=== PATIENT | female | born 1995 | race Caucasian/White ===

== ENCOUNTER 2018-11-26 12:43 | Inpatient (IN) ==
[2018-11-26] MEDS ORDERED: LACTATED RINGER'S 1,000 ML IV PRN (13:35)
[2018-11-26] MEDS ORDERED: LACTATED RINGER'S 250 ML IV ONE (13:35)
[2018-11-26] MEDS: LACTATED RINGER'S 1,000 ML IV SCH ×3 (13:49→23:41)
[2018-11-26 14:08] LABS: Basophils # (auto) 0.01 K/uL (0-0.2); Basophils % (auto) 0.1 %; Eosinophils # (auto) 0.02 K/uL (0-0.5); Eosinophils % (auto) 0.2 %; Hematocrit (blood only) 33.1 % (37-47); Hemoglobin 11.3 g/dL (12.0-16.0); Immature Granulocytes % (auto) 0.9 %; Lymphocytes # (auto) 0.79 K/uL (1.2-3.4); Lymphocytes % (auto) 6.7 %; Mean Corpuscular Volume 89.5 fL (80-100); Mean Platelet Volume 9.6 fL (7.4-10.4); Monocytes # (auto) 0.83 K/uL (0.11-0.59); Monocytes % (auto) 7.1 %; Neutrophils # (auto) 9.97 K/uL (1.4-6.5); Platelet Count 290 K/uL (130-400); RDW Standard Deviation 42.1 fL (36.4-46.3); White Blood Count 11.72 K/uL (4.8-10.8)
[2018-11-26 14:12] LABS: Mean Corpuscular Hgb Conc 34.1 g/dL (32-36)
[2018-11-26 14:25] LABS: Appearance Urine Clear (Clear); Bacteria Urine Automated Negative (Negative); Bilirubin Urine Negative (Negative); Blood Urine 1+ (Negative); Color Urine Yellow; Glucose Urine UA Negative (Negative); Ketones Urine Negative (Negative); Leukocyte Esterase Urine 1+ (Negative); Nitrite Urine Negative (Negative); Protein Urine 2+ (Negative); Specific Gravity Urine 1.014 (1.000-1.030); Urobilinogen Urine Negative (Negative); WBC Urine Automated >30 /hpf (0-5)
--- NOTE | 2018-11-26 14:28 | Progress Note ---
Date of Service November 26, 2018 Subjective Pt is 34 week with RLQ pain, No hematuria, dysuria but +ve frequency and urgency Afebrile on admission but reports chills last seen for UTI PMH. PSH, Fam hx. Allergies,social and OB hx reviewed FHR; tach Ctx. 2-4mins plan +ve RCVAT Plan IVF labs start Antibx continuos monitoring Results & Data Vital Signs (Past 12 Hours) Vital Signs Temp Pulse Resp BP Pulse Ox 11/26/18 14:14 37.8 C H 20 11/26/18 13:29 104 H 138/89 11/26/18 13:28 107 H 97 11/26/18 13:23 106 H 96 11/26/18 13:18 105 H 96 11/26/18 13:13 97 H 97 11/26/18 13:08 110 H 98 11/26/18 13:03 100 H 97 11/26/18 12:58 102 H 98 11/26/18 12:57 37.3 C 20 11/26/18 12:53 99 H 133/83 99 11/26/18 12:48 101 H 96
[2018-11-26 14:30] LABS: Albumin Level 2.6 gm/dl (3.4-5.0); BUN Creatinine Ratio 11.3 (10-20); Calcium 9.4 mg/dl (8.5-10.1); Creatinine Clr Calc Pharmacy 171.4 ml/min; Est GFR (African American) 147.1; Est GFR (Non-African American) 126.9; Potassium 3.7 mmol/L (3.5-5.1)
[2018-11-26 14:33] LABS: Albumin Globulin Ratio 0.6 (0.9-2); Bilirubin,Total 0.3 mg/dl (0.2-1); Globulin 4.4 gm/dl (2.5-4.0)
[2018-11-26] MEDS: cefTRIAXone SODIUM 2,000 MG in DEXTROSE 5% 50 ML IV SCH (14:55)
--- NOTE | 2018-11-26 16:24 | Ultrasound Report ---
US renal/blad retro comp HISTORY: Pain suspected pyelonephritis in at 24 weeks COMPARISON: None. FINDINGS: Right kidney: Moderate right renal hydronephrosis. Maximum linear dimension right kidney 12.2 cm. Nor mal corticomedullary differentiation and cortical thickness. Left kidney: Maximum dimension 13.6 cm. Moderate hydronephrosis. Normal corticomedullary differentia tion and cortical thickness. Bladder: No bladder wall thickening. The bilateral ureteral jets were identified. IMPRESSION: 1. Moderate bilateral hydronephrosis. 2. Otherwise negative study. The above report was generated using voice recognition software. It may contain grammatical, syntax or spelling errors. Electronically signed by: Ramin Loving M.D. 11/26/2018 4:23 PM
[2018-11-26] MEDS: ACETAMINOPHEN 500 MG TAB PO PRN ×2 (16:59→23:40)
--- NOTE | 2018-11-26 22:53 | History and Physical Report ---
DATE OF ADMISSION: 11/26/2018 HISTORY OF PRESENT ILLNESS: The patient is a 23-year-old G2, P0, due date 12/27/2018 making her 35 weeks and 4 days today, who presented to labor and delivery with right-sided lower abdominal pain. She has no shortness of breath. The patient complained of chills, no fever. No rupture of membranes or bloody show. Temperature was 36.9. The patient denied any hematuria or dysuria. She, however, does complain of frequency and urgency. The patient was seen last month for urinary tract infection and was treated. She reports the pain to be in the lower flank and radiating from back to the front. COURSE: Has been unremarkable except for history of UTI. PAST MEDICAL HISTORY: No history of diabetes, hypertension, or asthma. No history of renal stones. The patient, however, does have a history of headaches. PAST SURGICAL HISTORY: The patient had surgery for an impacted tooth and D and C. ALLERGIES: No known drug allergies. SOCIAL HISTORY: Denies tobacco, drug, or alcohol use. FAMILY HISTORY: Noncontributory. PHYSICAL EXAMINATION: VITAL SIGNS: Blood pressure 119/65, pulse 93, respirations 20, temperature is 36.9. On the monitor, fetus, however, was tachycardic in the 160-180s. HEART: S1, S2, regular rhythm and rate. LUNGS: Clear to auscultation bilaterally. ABDOMEN: Nontender, nondistended, positive bowel sounds. heart rate is in the 160s to 180s. There is right CVA tenderness. PELVIC EXAM: Closed, thick, and posterior. EXTREMITIES: No cyanosis, clubbing, edema. ASSESSMENT AND PLAN: At this point, was suspected pyelonephritis. The patient had an ultrasound which showed dilated hydronephrosis, no stones were evident. The patient does, however, report several episodes of chills. There is, however, no fever recorded at this time since patient has been on the floor. Suspected pyelonephritis. The patient is started on IV fluids and Rocephin. heart rate has since resolved to the 130s to 150s and is reactive. Plan is to keep patient overnight, continue ____ with antibiotics. Continue to monitor her temperatures.
--- NOTE | 2018-11-27 06:48 | Progress Note ---
Date of Service November 27, 2018 Subjective S: Pt feeling much better this AM. Afebrile since admission Improved CVAT Tolerating po food and meds On Rocephin antibx O; VSS stable UCX. +vbe for E.Coli PE: Lung; CTA bilat Ht; S1S1 R/r/r ABD; NT. Gravid. NST reactive, No Ctx - Reported by Nurses Ext; No C/C/E a/P Pyelonephritis vrs UTI Pt responding to Antibx Afebrile x 24 hrs will d/c after 2nd dose of antibx today and send home on Po Macrobid Results & Data Vital Signs (Past 12 Hours) Vital Signs Temp Pulse Resp BP Pulse Ox 11/27/18 03:25 37.1 C 86 16 109/64 98 11/26/18 23:45 37 C 96 H 16 121/76 97 11/26/18 19:45 36.6 C 86 18 113/64 96 11/26/18 19:05 93 H 119/65 11/26/18 19:00 20 11/26/18 18:56 36.9 C
[2018-11-27] MEDS: LACTATED RINGER'S 1,000 ML IV SCH (07:26)
[2018-11-27] MEDS: ACETAMINOPHEN 500 MG TAB PO PRN (10:20)
[2018-11-27] MEDS: cefTRIAXone SODIUM 2,000 MG in DEXTROSE 5% 50 ML IV SCH (14:26)
--- NOTE | 2018-12-13 05:12 | Discharge Summary ---
CHIEF COMPLAINT: Right flank pain. HISTORY OF PRESENT ILLNESS: This is a 23-year-old G2, P0, patient, due date 12/27/2018 making her 35 weeks and 4 days on 11/26/2018. Patient presented to labor and delivery with right-sided lower abdominal pain. She denied any shortness of breath. She denied any fever or chills. No bloody show or rupture of membranes. Temperature on arrival at labor and delivery was 36.9. The patient had no hematuria or dysuria. She, however, complained of frequency and urgency. She has been experiencing right-sided lower abdominal pain for a couple of days. She had had a history of urinary tract infection a few weeks ago and had been treated with Macrobid. Upon evaluation including ultrasound and labs, the patient was diagnosed with pyelonephritis. She received Rocephin antibiotics, her pain improved. She was discharged home the next day in stable condition. PAST MEDICAL HISTORY: History of UTI. No history of diabetes, hypertension, or asthma. has been uncomplicated. PAST SURGICAL HISTORY: The patient had dental surgery in the past. ALLERGIES: No known drug allergies. SOCIAL HISTORY: The patient denies tobacco, drug or alcohol use. FAMILY HISTORY: Noncontributory. REVIEW OF SYSTEMS: Negative except as dictated in the HPI. PHYSICAL EXAMINATION: VITAL SIGNS: On 11/27/2018, blood pressure was 115/68, pulse was 90, respiration was 18. HEART: S1, S2, regular rhythm and rate. LUNGS: Clear to auscultation bilaterally. ABDOMEN: Nontender and nondistended. Improved CVA tenderness at time of discharge. heart rate was documented and was category 1. EXTREMITIES: No cyanosis, clubbing, or edema. LABORATORY DATA: On 11/26/2018, hemoglobin was 11.3, hematocrit was 33.1, platelets were 290. CONDITION ON DISCHARGE: Stable. Antibiotics treatment for pyelonephritis. DISCHARGE DISPOSITION: The patient is discharged home in stable condition. PLAN ON DISCHARGE: The patient is discharged home with instructions regarding activity, diet, and followup appointment.
== END 2018-11-27 15:45 | disposition home or self-care (01) | DRG 832 ==
LOC: 4S1 12:43 → OPB 12:43 → 4S1 18:22 → 4N 19:35

== ENCOUNTER 2018-12-29 06:56 | Inpatient (IN) ==
[2018-12-29] MEDS ORDERED: OXYTOCIN 30 UNITS/500 ML BAG IV PRN ×2 (10:14→20:49)
[2018-12-29] MEDS ORDERED: BUTORPHANOL TARTRATE 2 MG/ML VIAL IV PRN (10:17)
[2018-12-29 10:32] LABS: Hematocrit (blood only) 34.9 % (37-47); Hemoglobin 12.2 g/dL (12.0-16.0); Mean Corpuscular Volume 89.9 fL (80-100); Mean Platelet Volume 9.8 fL (7.4-10.4); Platelet Count 330 K/uL (130-400); RDW Coefficient of Variation 13.6 % (11.5-14.5); RDW Standard Deviation 44.7 fL (36.4-46.3); Red Blood Count 3.88 M/uL (4.2-5.4); White Blood Count 14.04 K/uL (4.8-10.8)
[2018-12-29] MEDS ORDERED: ACETAMINOPHEN 325 MG TAB PO STA (11:16)
[2018-12-29] MEDS: LACTATED RINGER'S 1,000 ML IV PRN ×2 (13:35→16:43)
[2018-12-29] MEDS ORDERED: fentaNYL citrate 100 MCG/2 ML VIAL ONE (16:09)
[2018-12-29] MEDS ORDERED: BUPIVACAINE 0.25% 30 ML VIAL ONE (16:09)
[2018-12-29] MEDS ORDERED: ePHEDrine sulfate 50 MG/ML AMP ONE (16:09)
[2018-12-29] MEDS ORDERED: fentaNYL 2MCG/ML ROPIV 1.25MG/ML 100 ML BAG EPI ONE (16:10)
[2018-12-29] MEDS ORDERED: ePHEDrine sulfate 50 MG/ML AMP IV PRN (16:16)
[2018-12-29] MEDS ORDERED: DiphenhydrAMINE HCL 50 MG/ML VIAL IV PRN (16:16)
[2018-12-29] MEDS ORDERED: NALOXONE HCL 0.4 MG/1 ML VIAL/CARP IV PRN (16:16)
[2018-12-29] MEDS ORDERED: fentaNYL 2MCG/ML ROPIV 1.25MG/ML 100 ML BAG EPI PRN (16:16)
[2018-12-29] MEDS ORDERED: ONDANSETRON INJ 2 MG/ML 2 ML VIAL IV PRN (16:16)
[2018-12-29] MEDS ORDERED: NALOXONE HCL 1 MG in SODIUM CHLORIDE 0.9% 1000ML 1,000 ML IV PRN (16:16)
[2018-12-29] MEDS ORDERED: NALBUPHINE HCL INJ 10 MG/ML AMP IV PRN (16:16)
--- NOTE | 2018-12-29 16:19 | Anesthesiology Consultation ---
Date of Service December 29, 2018 Assessment & Plan (1) Encounter for pre-operative examination: Chart Review Chart Review: Acceptable Risk for Labor Epidural Consults Requested none ASA ASA2 Proposed Anesthesia Anesthesia Type: Labor Epidural Risk / Benefits Reviewed With: PT / POA / Parent / Guardian, Accepts Plan and Informed Consent Obtained History Height/Weight Height: 5 ft 6 in Weight: 102.058 kg Allergies Allergy/AdvReac Type Severity Reaction Status Date / Time No Known Allergies Allergy Verified 12/29/18 07:35 Medications Home Medications Medication Instructions Recorded Confirmed Last Taken Vitamin 1 tab PO DAILY 11/26/18 12/29/18 12/28/18 17:00 Active Medications Generic Name Dose Route Start Last Admin Trade Name Freq PRN Reason Stop Dose Admin Butorphanol Tartrate 2 mg 12/29/18 10:17 12/29/18 13:41 Stadol IV 01/28/19 10:16 2 mg Q3H PRN Administration Pain Lactated Ringer's 1,000 mls @ 125 mls/hr 12/29/18 10:14 12/29/18 15:25 Lr IV 12/31/18 10:13 125 mls/hr .Q8H PRN Infusion L&D Protocol Protocol Past Medical History Medical History Gestational diabetes SAB (spontaneous ) Edgar teeth extracted 09/2016 Exercise / Class Metabolic Activity II 4-5 Yardwork/Stairs/Walk up hill Past Family History Family History Other No pertinent family history Past Surgical History Surgical History H/O dilation and curettage Past Anesthesia History No Hx of Anesthesia Complications and No Family Hx of Anesthesia Complications History of PONV No Hx of PONV and No Hx of Motion Sickness Social History Smoking Status: Former smoker Hx Alcohol Use: No Hx Substance Use: No Physical Exam Vital Signs Last Vital Signs Temp 97.5 F L 12/29/18 15:10 Pulse 67 12/29/18 15:10 Resp 20 12/29/18 15:10 BP 134/82 12/29/18 15:10 ENMT Mouth: no dentition abnormality Thyromental Distance: > or= 3.5 Finger Breadths Mallampati Class: II Neck normal visual inspection Respiratory normal respiratory effort Auscultation: lungs clear to auscultation bilaterally Cardiovascular Rate/Rhythm: regular rate and regular rhythm Testing Laboratory Results 12/29/18 10:19
--- NOTE | 2018-12-29 17:40 | Labor Progress Brief Note ---
Date of Service December 29, 2018 Pt doing well FHR ;CAT1 ctx irreg VE: 10/100/0 station AROM; light [facility] Results & Data Vital Signs (Past 12 Hours) Vital Signs Temp Pulse Resp BP Pulse Ox 12/29/18 17:37 86 98 12/29/18 17:32 79 97 12/29/18 17:30 85 145/97 H 12/29/18 17:27 84 99 12/29/18 17:22 88 92 12/29/18 17:17 83 98 12/29/18 17:16 90 144/86 H 12/29/18 17:15 86 91 12/29/18 17:12 90 98 12/29/18 17:07 89 99 12/29/18 17:02 82 100 12/29/18 16:59 85 136/80 12/29/18 16:57 93 H 99 12/29/18 16:54 83 134/78 12/29/18 16:52 89 99 12/29/18 16:47 88 98 12/29/18 16:45 94 H 121/70 12/29/18 16:42 93 H 129/73 98 12/29/18 16:39 89 135/76 12/29/18 16:37 83 97 12/29/18 16:36 85 136/80 12/29/18 16:35 102 H 94 12/29/18 16:32 91 H 97 12/29/18 16:27 78 97 12/29/18 16:22 81 98 12/29/18 16:17 79 132/74 98 12/29/18 15:10 36.4 C L 67 20 134/82 12/29/18 13:31 78 118/69 12/29/18 10:03 36.6 C 77 20 134/71 12/29/18 07:13 36.5 C 20 12/29/18 07:11 78 140/85
[2018-12-29] MEDS ORDERED: METHYLERGONOVINE MALEATE 0.2 MG/ML AMP ONE (20:41)
[2018-12-29] MEDS ORDERED: miSOPROStol 200 MCG TAB ONE (20:42)
[2018-12-29] MEDS ORDERED: BISACODYL 10 MG SUPP PR PRN (20:49)
[2018-12-29] MEDS ORDERED: miSOPROStol 200 MCG TAB PR ONE (20:49)
[2018-12-29] MEDS ORDERED: HYDROCORTISONE ACETATE 25 MG SUPP PR PRN (20:49)
[2018-12-29] MEDS ORDERED: METHYLERGONOVINE MALEATE 0.2 MG/ML AMP IM ONE (20:49)
[2018-12-29] MEDS ORDERED: DIPHTHERIA/TETANUS/PERTUSSIS 0.5 ML SYR/VIAL IM ONE (20:49)
[2018-12-29] MEDS ORDERED: SUPERCREAM 0.870% 15 GM JAR EXT PRN (20:49)
--- NOTE | 2018-12-29 22:47 | Anesthesia Procedure Note ---
Date of Service December 29, 2018 Anesthesia Post Epidural Note Vital Signs Vital Signs: Temp Pulse Resp BP Pulse Ox 36.5 C 89 20 136/62 87 L 12/29/18 19:15 12/29/18 22:33 12/29/18 21:30 12/29/18 22:33 12/29/18 20:32 Pain Intensity Bilateral Abdomen: Pain Intensity: 0 Notes Mental Status: alert / awake / arousable and participated in evaluation Nausea / Vomiting: adequately controlled Pain: adequately controlled Airway Patency, RR, SpO2: stable & adequate BP & HR: stable & adequate Hydration State: stable & adequate Neuraxial Anesthesia: was administered and sensory block is resolving Anesthetic Complications: no major complications apparent and Pt Satisfied with anesthetic care Epidural: Removed without complications and With tip intact
[2018-12-29] MEDS: DOCUSATE SODIUM 100 MG CAP PO SCH (22:56)
--- NOTE | 2018-12-29 23:23 | History and Physical Report ---
DATE OF ADMISSION: 12/29/2018 HISTORY OF PRESENT ILLNESS: The patient is a 23-year-old G2, P0, due date was 12/27/2018 making her 40 weeks and 2 days. Patient presented to labor and delivery with contraction every 3-4 minutes. heart rate on arrival was category 1. She was examined and found to be about 3 cm. The patient ambulated for a couple of hours, she changed to 4 cm, and was admitted in anticipation of labor. course has been unremarkable except for history of gestational diabetes that was being controlled by diet. PAST MEDICAL HISTORY: History of headaches. PAST SURGICAL HISTORY: History of dental surgery. SOCIAL HISTORY: The patient was a former smoker. Denied any smoking in this . Denied alcohol and drug use. FAMILY HISTORY: Noncontributory. ALLERGIES: No known drug allergies. PHYSICAL EXAMINATION: GENERAL: Well-developed, well-nourished white female in no acute distress except for labor discomfort. HEART: S1, S2, regular rhythm and rate. LUNGS: Clear to auscultation bilaterally. ABDOMEN: Nontender, gravid. PELVIC: On admission was 3 cm. EXTREMITIES: No cyanosis, clubbing or edema. ASSESSMENT AND PLAN: A 23-year-old G2, P0 at 40 weeks and 2 days who presented to labor and delivery in labor. The patient has been admitted. We anticipate vaginal delivery.
[2018-12-29] MEDS: BENZOCAINE 20% AER SPR 82.5 GM CAN EXT PRN (23:30)
[2018-12-30] MEDS: ACETAMINOPHEN 325 MG TAB PO PRN (03:22)
[2018-12-30] MEDS: IBUPROFEN 600 MG TAB PO PRN ×3 (04:06→14:56)
[2018-12-30 05:29] LABS: Appearance Urine Cloudy (Clear); Bilirubin Urine Negative (Negative); Blood Urine 3+ (Negative); Color Urine Red; Glucose Urine UA Negative (Negative); Ketones Urine Negative (Negative); Leukocyte Esterase Urine 1+ (Negative); Nitrite Urine Negative (Negative); Protein Urine 2+ (Negative); Urobilinogen Urine Negative (Negative); pH Urine 6.5 (4.5-7.5)
[2018-12-30 05:57] LABS: Mucus Urine Present (None Prsent); RBC Urine >30 /hpf (0-4); WBC Urine >30 /hpf (0-5)
[2018-12-30 05:58] LABS: Bacteria Urine 1+ (Negative)
[2018-12-30 06:46] LABS: Hematocrit (blood only) 33.6 % (37-47); Hemoglobin 11.2 g/dL (12.0-16.0); Mean Corpuscular Hgb Conc 33.3 g/dL (32-36); Mean Corpuscular Volume 90.3 fL (80-100); Mean Platelet Volume 9.9 fL (7.4-10.4); Platelet Count 277 K/uL (130-400); RDW Coefficient of Variation 13.8 % (11.5-14.5); RDW Standard Deviation 45.6 fL (36.4-46.3); Red Blood Count 3.72 M/uL (4.2-5.4); White Blood Count 18.49 K/uL (4.8-10.8)
--- NOTE | 2018-12-30 06:46 | Delivery Summary ---
DATE OF OPERATION: 12/29/2018 The patient delivered a live infant male in right occiput anterior presentation. There was no nuchal cord. was delivered. Cord was clamped and cut after 1 minute. Cord blood was obtained. Placenta was spontaneously delivered. Inspection of the placenta showed meconium's presence. There was terminal meconium post-delivery as well. Inspection of the perineum showed right labial tear which was repaired with 2-0 Vicryls. There were no other lacerations in the vagina. Rectal exam post repair showed good sphincter tone. Estimated blood loss was 500 mL. Baby and mother are doing well in recovery. Patient's Apgars in the pediatric record. I attest to the content of the Intraoperative Record and any orders documented therein. Any exception s are noted below.
[2018-12-30] MEDS: PRENATAL VITAMIN 1 TAB PO SCH (07:31)
[2018-12-30] MEDS: DOCUSATE SODIUM 100 MG CAP PO SCH ×2 (07:31→20:35)
[2018-12-30] MEDS: FERROUS SULFATE 325 MG TAB PO SCH (07:31)
--- NOTE | 2018-12-30 09:12 | Obstetrical Progress Note ---
Date of Service December 30, 2018 Subjective doing well no pain or significant bleeding Physical Exam Constitutional: WD/WN, vitals as above comfortable abdomen soft non- tender fundus firm no edema neg Sanai's repeat CBC in AM tent d/c in AM Results & Data Vital Signs (Past 12 Hours) Vital Signs Temp Pulse Pulse Resp BP BP Pulse Ox 12/30/18 05:10 37.2 C 12/30/18 03:55 38.8 C H 12/30/18 03:20 38.0 C H 118 H 18 124/73 96 12/29/18 23:10 36.9 C 101 H 18 128/78 97 12/29/18 22:33 89 136/62 12/29/18 22:15 93 H 154/79 H 12/29/18 22:03 90 150/79 H 12/29/18 21:45 93 H 137/60 12/29/18 21:30 93 H 20 145/64 H 12/29/18 21:27 97 H 130/61 Laboratory Results Vital Signs Temp Pulse Pulse Resp BP BP Pulse Ox 12/30/18 05:10 37.2 C 12/30/18 03:55 38.8 C H 12/30/18 03:20 38.0 C H 118 H 18 124/73 96 12/29/18 23:10 36.9 C 101 H 18 128/78 97 12/29/18 22:33 89 136/62 12/29/18 22:15 93 H 154/79 H 12/29/18 22:03 90 150/79 H 12/29/18 21:45 93 H 137/60 12/29/18 21:30 93 H 20 145/64 H 12/29/18 21:27 97 H 130/61 12/29/18 20:45 103 H 20 141/81 H 12/29/18 20:40 98 H 137/65 12/29/18 20:32 150 H 87 L 12/29/18 20:28 110 H 94 12/29/18 20:27 107 H 94 12/29/18 20:22 129 H 93 12/29/18 20:17 149 H 97 12/29/18 20:12 136 H 95 12/29/18 20:08 91 H 93 12/29/18 20:07 90 96 12/29/18 20:03 100 H 94 12/29/18 20:02 108 H 97 12/29/18 19:57 92 H 94 12/29/18 19:52 90 94 12/29/18 19:50 94 H 94 12/29/18 19:47 98 H 96 12/29/18 19:46 93 H 116/76 12/29/18 19:44 95 H 94 12/29/18 19:42 103 H 95 12/29/18 19:39 93 H 94 12/29/18 19:37 83 94 12/29/18 19:34 84 94 12/29/18 19:32 97 H 95 12/29/18 19:30 74 132/78 12/29/18 19:29 91 H 94 12/29/18 19:27 85 94 12/29/18 19:24 80 93 12/29/18 19:22 88 92 12/29/18 19:18 100 H 93 12/29/18 19:17 95 H 95 12/29/18 19:15 36.5 C 85 20 128/81 12/29/18 19:13 75 93 12/29/18 19:12 88 95 12/29/18 19:07 74 96 12/29/18 19:05 78 93 12/29/18 19:02 76 95 12/29/18 19:00 76 20 124/63 12/29/18 18:57 76 93 12/29/18 18:52 77 97 12/29/18 18:49 82 92 12/29/18 18:47 69 96 12/29/18 18:46 71 116/87 12/29/18 18:44 71 90 12/29/18 18:42 67 97 12/29/18 18:39 71 93 12/29/18 18:37 69 98 12/29/18 18:32 80 95 12/29/18 18:30 67 129/66 12/29/18 18:29 93 H 93 12/29/18 18:27 80 96 12/29/18 18:22 74 96 12/29/18 18:17 73 97 12/29/18 18:15 69 121/55 L 12/29/18 18:13 75 94 12/29/18 18:12 69 94 12/29/18 18:07 78 97 12/29/18 18:02 78 97 12/29/18 18:00 73 20 122/67 06/30/19 17:57 77 96 12/29/18 17:52 76 98 12/29/18 17:47 77 98 12/29/18 17:46 67 119/64 12/29/18 17:42 78 99 12/29/18 17:40 75 93 12/29/18 17:37 86 98 12/29/18 17:32 79 97 12/29/18 17:30 85 145/97 H 12/29/18 17:27 84 99 12/29/18 17:22 88 92 12/29/18 17:17 83 98 12/29/18 17:16 90 144/86 H 12/29/18 17:15 86 91 12/29/18 17:12 90 98 12/29/18 17:07 89 99 12/29/18 17:02 82 100 12/29/18 16:59 85 136/80 12/29/18 16:57 93 H 99 12/29/18 16:54 83 20 134/78 12/29/18 16:52 89 99 12/29/18 16:47 88 98 12/29/18 16:45 94 H 121/70 12/29/18 16:42 93 H 129/73 98 12/29/18 16:39 89 135/76 12/29/18 16:37 83 97 12/29/18 16:36 85 136/80 12/29/18 16:35 102 H 94 12/29/18 16:32 91 H 97 12/29/18 16:27 78 97 12/29/18 16:22 81 98 12/29/18 16:17 79 132/74 98 12/29/18 15:10 36.4 C L 67 20 134/82 12/29/18 13:31 78 118/69 12/29/18 10:03 36.6 C 77 20 134/71 Intake and Output 12/29/18 12/30/18 12/30/18 22:59 06:59 14:59 Intake Total 1355.700 / 1355.700 Output Total 1400 / 1400 Balance -44.300 / -44.300 Intake: IV 1355.700 / 1355.700 Lr 1,000 ml @ 125 mls/hr IV . 1355.700 / 1355.700 Q8H PRN Rx#:[id number] Output: Urine 1400 / 1400 Other: Weight 102.058 kg Diagnostic Findings Laboratory Results - last 24 hr 12/29/18 12/30/18 12/30/18 10:19 04:00 06:26 WBC 14.04 H 18.49 H RBC 3.88 L 3.72 L Hgb 12.2 11.2 L Hct 34.9 L 33.6 L MCV 89.9 90.3 MCH 31.4 30.1 MCHC 35.0 33.3 RDW Std Deviation 44.7 45.6 RDW Coeff of Ren 13.6 13.8 Plt Count 330 277 MPV 9.8 9.9 Urine Color Red Urine Appearance Cloudy A Urine pH 6.[address] 1.020 Urine Protein 2+ H Urine Glucose (UA) Negative Urine Ketones Negative Urine Blood 3+ H Urine Nitrite Negative Urine Bilirubin Negative Urine Urobilinogen Negative Ur Leukocyte Esterase 1+ H Urine RBC >30 H Urine WBC >30 H Ur Epithelial Cells 10-20 H Urine Bacteria 1+ H Urine Mucus Present A
[2018-12-30] MEDS ORDERED: BISACODYL 5 MG TABEC PO SCH (20:00)
[2018-12-31] MEDS: IBUPROFEN 600 MG TAB PO PRN ×2 (00:04→18:30)
[2018-12-31] MEDS: ACETAMINOPHEN 325 MG TAB PO PRN ×2 (02:09→11:16)
[2018-12-31 06:49] LABS: Hematocrit (blood only) 34.2 % (37-47); Hemoglobin 11.5 g/dL (12.0-16.0); Mean Corpuscular Hgb Conc 33.6 g/dL (32-36); Mean Corpuscular Volume 90.5 fL (80-100); Mean Platelet Volume 10.2 fL (7.4-10.4); Platelet Count 281 K/uL (130-400); RDW Coefficient of Variation 13.9 % (11.5-14.5); RDW Standard Deviation 45.7 fL (36.4-46.3); Red Blood Count 3.78 M/uL (4.2-5.4); White Blood Count 20.17 K/uL (4.8-10.8)
[2018-12-31 07:15] LABS: Basophils # (auto) 0.02 K/uL (0-0.2); Basophils % (auto) 0.1 %; Dohle Bodies 1+; Echinocytes 1+; Eosinophils # (auto) 0.05 K/uL (0-0.5); Eosinophils % (auto) 0.2 %; Lymphocytes # (auto) 1.24 K/uL (1.2-3.4); Lymphocytes % (auto) 6.1 %; Monocytes # (auto) 1.19 K/uL (0.11-0.59); Monocytes % (auto) 5.9 %; Neutrophils # (auto) 17.47 K/uL (1.4-6.5); Neutrophils % (auto) 86.7 %; Toxic Vacuolation 1+
[2018-12-31] MEDS: DOCUSATE SODIUM 100 MG CAP PO SCH ×2 (08:29→21:22)
[2018-12-31] MEDS: FERROUS SULFATE 325 MG TAB PO SCH (08:29)
[2018-12-31] MEDS: PRENATAL VITAMIN 1 TAB PO SCH (08:29)
[2018-12-31] MEDS ORDERED: GENTAMICIN CONSULT ACTIVE PRN (08:47)
[2018-12-31] MEDS: LACTATED RINGER'S 1,000 ML IV SCH ×2 (09:10→19:11)
[2018-12-31] MEDS: AMPICILLIN 2,000 MG in SODIUM CHLOR 0.9% AD-VAN 100 ML IV SCH ×3 (09:51→21:22)
[2018-12-31 10:01] LABS: Albumin Level 2.1 gm/dl (3.4-5.0); BUN Creatinine Ratio 15.2 (10-20); Calcium 9.1 mg/dl (8.5-10.1); Creatinine Clr Calc Pharmacy 129.2 ml/min; Est GFR (African American) 117.8; Est GFR (Non-African American) 101.7; Potassium 4.3 mmol/L (3.5-5.1)
[2018-12-31 10:04] LABS: Albumin Globulin Ratio 0.5 (0.9-2); Bilirubin,Total 0.4 mg/dl (0.2-1); Globulin 4.4 gm/dl (2.5-4.0); Total Protein 6.5 gm/dl (6.4-8.2)
[2018-12-31] MEDS: GENTAMICIN SULFATE 500 MG in DEXTROSE 5% 100 ML IV SCH (10:23)
--- NOTE | 2018-12-31 11:10 | Pharmacy Report ---
Pharmacy Abx Initial Consult - Date of Service December 31, 2018 - Pharmacy Dosing Scope Date of Consult: 12/31/18 Consultation requested by: Dr. Gallegos Pharmacy is consulted to initiate gentamicin IV dosing therapy, order appropriate labs and adjust drug dose/frequency. - Subjective The patient is a 23 year old F admitted on 12/29/18 10:22 for delivery. - Objective Height: 5 ft 6 in Weight: 102.058 kg Vital Signs (Past 12hrs): Vital Signs Temp Pulse Resp BP Pulse Ox 12/31/18 08:45 36.6 C 110 H 24 124/79 12/31/18 07:15 36.5 C 78 18 84/52 L 97 12/31/18 03:17 36.8 C 12/31/18 01:50 36.8 C 112 H 12/31/18 00:09 37.4 C 115 H 18 126/84 12/30/18 23:15 38.0 C H Lab Results (24hrs): Laboratory Tests (24 Hours) 12/31/18 12/31/18 09:22 06:22 WBC 20.17 H Neut # (Auto) 17.47 H Creatinine 0.81 Est Cr Clr Drug Dosing 129.2 Micro Results: 12/31/18 09:22 Aerobic Blood Culture - Pending Blood Anaerobic Blood Culture - Pending 12/31/18 08:55 Aerobic Blood Culture - Pending Blood Anaerobic Blood Culture - Pending 12/30/18 04:00 Urine Culture - Final Urine,Clean Catch Three types or organisms present, all moderate counts probable skin ramon. No further identifications or sensitivities to follow. - Assessment & Plan Assessment 23 year old F s/p vaginal delivery with possible infection. Plan gentamicin for treatment of gynecological infection s/p delivery altered pharmacokinetics in the setting of post-. * Dose: 500 mg (5 mg/kg of ACTUAL) IV every 24 hours * per guidelines, it is okay to not order random level for patients expected to only be on gentamicin for several doses. If therapy is prolonged recommend ordering random levels. Pharmacy will continue to follow and will adjust dose/frequency as necessary. Thank you.
--- NOTE | 2018-12-31 13:11 | Obstetrical Progress Note ---
Date of Service December 31, 2018 Assessment & Plan (1) normal course: PPD #2 Pt reports not feeling well. Has chills on and off Review of labs show elev. WBC Pt examined at bedside IVF restarted CMP ordered BC x2 starting her on antibx Results & Data Vital Signs (Past 12 Hours) Vital Signs Temp Pulse Resp BP Pulse Ox 12/31/18 08:45 36.6 C 110 H 24 124/79 12/31/18 07:15 36.5 C 78 18 84/52 L 97 12/31/18 03:17 36.8 C 12/31/18 01:50 36.8 C 112 H
[2019-01-01] MEDS: AMPICILLIN 2,000 MG in SODIUM CHLOR 0.9% AD-VAN 100 ML IV SCH ×5 (03:00→21:22)
[2019-01-01] MEDS: IBUPROFEN 600 MG TAB PO PRN (03:00)
[2019-01-01] MEDS: LACTATED RINGER'S 1,000 ML IV SCH ×3 (03:03→23:58)
[2019-01-01] MEDS: CLINDAMYCIN 900 MG in DEXTROSE 5% 50 ML IV SCH ×3 (04:21→20:07)
--- NOTE | 2019-01-01 04:34 | Progress Note ---
Date of Service January 01, 2019 Subjective Pt is s/p VD X2 days On Amp and Gent Bc x2 is Neg so far has fever on and off No SOB, URI or abdominal tenderness No leg pain or erythema in popliteal region PE; HT; S1S2, R/R/R Lung CTA bilat Abd; NT / Fundus is firm Pel; dec lochia ' Ext; NO erythema or pain in popliteal region A/P fever On Amp and gent will add clindamycin CXR this AM Results & Data Vital Signs (Past 12 Hours) Vital Signs Temp Pulse Resp BP Pulse Ox 01/01/19 03:30 39.5 C H 115 H 18 110/65 01/01/19 00:00 37.5 C 110 H 18 123/80 12/31/18 19:25 38 C H 109 H 22 108/61 97 12/31/18 18:25 39.3 C H 12/31/18 16:55 36.5 C
[2019-01-01 04:50] LABS: Hematocrit (blood only) 30.7 % (37-47); Hemoglobin 10.2 g/dL (12.0-16.0); Lymphocytes % (auto) 7.6 %; Mean Corpuscular Hgb Conc 33.2 g/dL (32-36); Mean Corpuscular Volume 91.4 fL (80-100); Mean Platelet Volume 9.6 fL (7.4-10.4); Neutrophils % (auto) 82.3 %; Platelet Count 286 K/uL (130-400); RDW Coefficient of Variation 13.8 % (11.5-14.5); RDW Standard Deviation 45.9 fL (36.4-46.3); Red Blood Count 3.36 M/uL (4.2-5.4); White Blood Count 12.22 K/uL (4.8-10.8)
[2019-01-01 04:51] LABS: Basophils # (auto) 0.02 K/uL (0-0.2); Basophils % (auto) 0.2 %; Eosinophils # (auto) 0.09 K/uL (0-0.5); Eosinophils % (auto) 0.7 %; Immature Granulocytes # (auto) 0.16 K/uL (0.00-0.02); Immature Granulocytes % (auto) 1.3 %; Lymphocytes # (auto) 0.93 K/uL (1.2-3.4); Monocytes # (auto) 0.97 K/uL (0.11-0.59); Monocytes % (auto) 7.9 %; Neutrophils # (auto) 10.05 K/uL (1.4-6.5)
[2019-01-01 05:10] LABS: Albumin Level 1.9 gm/dl (3.4-5.0); BUN Creatinine Ratio 19.8 (10-20); Calcium 8.5 mg/dl (8.5-10.1); Creatinine Clr Calc Pharmacy 151.6 ml/min; Est GFR (African American) 141.2; Est GFR (Non-African American) 121.8
[2019-01-01 05:12] LABS: Albumin Globulin Ratio 0.5 (0.9-2); Bilirubin,Total 0.2 mg/dl (0.2-1); Globulin 3.9 gm/dl (2.5-4.0); Total Protein 5.8 gm/dl (6.4-8.2)
[2019-01-01] MEDS ORDERED: NITROFURANTOIN MONOHYDRATE 100 MG CAP PO SCH (09:00)
--- NOTE | 2019-01-01 09:06 | XRay Report ---
XR chest PA, lat, obliques HISTORY: 23 years-old Female FUO day 2 COMPARISON: None available TECHNIQUE: PA, bilateral oblique and lateral views of the chest FINDINGS: Cardiomediastinal and hilar silhouettes are within normal limits. There is no pneumothorax, large ple ural effusion, focal airspace consolidation or overt pulmonary edema. Minimal blunting of the posteri or costophrenic angles. Bones of the chest appear grossly intact. IMPRESSION: Minimal blunting of the posterior costophrenic angles may reflect atelectasis versus trac e pleural effusions. The above report was generated using voice recognition software. It may contain grammatical, syntax o r spelling errors. Electronically signed by: Ryan Poe M.D. 01/01/2019 9:04 AM
[2019-01-01] MEDS: FERROUS SULFATE 325 MG TAB PO SCH (09:22)
[2019-01-01] MEDS: PRENATAL VITAMIN 1 TAB PO SCH (09:22)
[2019-01-01] MEDS: DOCUSATE SODIUM 100 MG CAP PO SCH ×3 (09:22→21:22)
[2019-01-01] MEDS: GENTAMICIN SULFATE 500 MG in DEXTROSE 5% 100 ML IV SCH (10:04)
[2019-01-01] MEDS: ACETAMINOPHEN 325 MG TAB PO PRN (21:22)
[2019-01-02] MEDS: AMPICILLIN 2,000 MG in SODIUM CHLOR 0.9% AD-VAN 100 ML IV SCH ×2 (03:25→09:43)
[2019-01-02] MEDS: IBUPROFEN 600 MG TAB PO PRN ×2 (03:33→08:55)
[2019-01-02] MEDS: CLINDAMYCIN 900 MG in DEXTROSE 5% 50 ML IV SCH ×2 (04:04→11:32)
[2019-01-02] MEDS: FERROUS SULFATE 325 MG TAB PO SCH (08:56)
[2019-01-02] MEDS: PRENATAL VITAMIN 1 TAB PO SCH (08:56)
[2019-01-02] MEDS: DOCUSATE SODIUM 100 MG CAP PO SCH ×2 (08:57→21:07)
[2019-01-02 09:31] LABS: Basophils # (auto) 0.03 K/uL (0-0.2); Basophils % (auto) 0.4 %; Eosinophils # (auto) 0.12 K/uL (0-0.5); Eosinophils % (auto) 1.7 %; Hematocrit (blood only) 32.1 % (37-47); Hemoglobin 10.7 g/dL (12.0-16.0); Immature Granulocytes # (auto) 0.27 K/uL (0.00-0.02); Immature Granulocytes % (auto) 3.8 %; Lymphocytes # (auto) 1.01 K/uL (1.2-3.4); Lymphocytes % (auto) 14.1 %; Mean Corpuscular Volume 91.5 fL (80-100); Mean Platelet Volume 9.4 fL (7.4-10.4); Monocytes # (auto) 0.34 K/uL (0.11-0.59); Monocytes % (auto) 4.7 %; Neutrophils # (auto) 5.41 K/uL (1.4-6.5); Neutrophils % (auto) 75.3 %; Platelet Count 307 K/uL (130-400); RDW Coefficient of Variation 13.9 % (11.5-14.5); RDW Standard Deviation 46.3 fL (36.4-46.3); Red Blood Count 3.51 M/uL (4.2-5.4); White Blood Count 7.18 K/uL (4.8-10.8)
[2019-01-02 09:36] LABS: Mean Corpuscular Hgb Conc 33.3 g/dL (32-36)
--- NOTE | 2019-01-02 09:43 | Obstetrical Progress Note ---
Date of Service January 02, 2019 Subjective still feeling chills off/on no abdominal pain or bleeding Physical Exam Constitutional: WD/WN, vitals as above well nourished and comfortable abdomen is soft and non-tender fundus firm no edema of lower extremities neg Sania's continue to spike fever despite abx cultures all negative WBC down will continue abx ID consult CT to r/o SPT Results & Data Vital Signs (Past 12 Hours) Vital Signs Temp Pulse Resp BP 01/02/19 03:30 37.9 C H 79 18 132/81 01/02/19 00:10 36.9 C 89 18 112/72 01/01/19 22:20 37.9 C H Laboratory Results Laboratory Results - last 72 hr 12/31/18 12/31/18 01/01/19 06:22 09:22 04:34 WBC 20.17 H 12.22 H RBC 3.78 L 3.36 L Hgb 11.5 L 10.2 L Hct 34.2 L 30.7 L MCV 90.5 91.4 MCH 30.4 30.4 MCHC 33.6 33.2 RDW Std Deviation 45.7 45.9 RDW Coeff of Ren 13.9 13.8 Plt Count 281 286 MPV 10.2 9.6 Immature Gran % (Auto) 1.0 1.3 Neut % (Auto) 86.7 82.3 Lymph % (Auto) 6.1 7.6 [place] % (Auto) 5.9 7.9 Eos % (Auto) 0.2 0.7 Baso % (Auto) 0.1 0.2 Immature Gran # (Auto) 0.20 H 0.16 H Neut # (Auto) 17.47 H 10.05 H Lymph # (Auto) 1.24 0.93 L [place] # (Auto) 1.19 H 0.97 H Eos # (Auto) 0.05 0.09 Baso # (Auto) 0.02 0.02 Toxic Vacuolation 1+ Dohle Bodies 1+ Echinocytes 1+ Sodium 141 Potassium 4.3 Chloride 111 H Carbon Dioxide 18 L Anion Gap 12.0 H BUN 12 Creatinine 0.81 Est Cr Clr Drug Dosing 129.2 Est GFR ( Amer) 117.8 Est GFR (Non-Af Amer) 101.7 BUN/Creatinine Ratio 15.2 Glucose 125 H Calcium 9.1 Total Bilirubin 0.4 AST 19 ALT 17 Alkaline Phosphatase 104 Total Protein 6.5 Albumin 2.1 L Globulin 4.4 H Albumin/Globulin Ratio 0.5 L 01/01/19 01/02/19 04:34 09:20 WBC 7.18 RBC 3.51 L Hgb 10.7 L Hct 32.1 L MCV 91.5 MCH 30.5 MCHC 33.3 RDW Std Deviation 46.3 RDW Coeff of Ren 13.9 Plt Count 307 MPV 9.4 Immature Gran % (Auto) 3.8 Neut % (Auto) 75.3 Lymph % (Auto) 14.1 [place] % (Auto) 4.7 Eos % (Auto) 1.7 Baso % (Auto) 0.4 Immature Gran # (Auto) 0.27 H Neut # (Auto) 5.41 Lymph # (Auto) 1.01 L [place] # (Auto) 0.34 Eos # (Auto) 0.12 Baso # (Auto) 0.03 Toxic Vacuolation Dohle Bodies Echinocytes Sodium 140 Potassium 3.0 L D Chloride 110 H Carbon Dioxide 23 Anion Gap 8.0 BUN 14 Creatinine 0.69 Est Cr Clr Drug Dosing 151.6 Est GFR ( Amer) 141.2 Est GFR (Non-Af Amer) 121.8 BUN/Creatinine Ratio 19.8 Glucose 118 H Calcium 8.5 Total Bilirubin 0.2 AST 15 ALT 16 Alkaline Phosphatase 100 Total Protein 5.8 L Albumin 1.9 L Globulin 3.9 Albumin/Globulin Ratio 0.5 L
[2019-01-02 09:55] LABS: BUN Creatinine Ratio 10.3 (10-20); Calcium 8.5 mg/dl (8.5-10.1); Creatinine Clr Calc Pharmacy 126.1 ml/min; Est GFR (African American) 114.4; Est GFR (Non-African American) 98.7; Potassium 3.2 mmol/L (3.5-5.1)
[2019-01-02] MEDS: GENTAMICIN SULFATE 500 MG in DEXTROSE 5% 100 ML IV SCH (10:28)
[2019-01-02] MEDS ORDERED: PIPERACILL/TAZOBAC CONSULT ACTIVE PRN (12:05)
--- NOTE | 2019-01-02 12:05 | Infectious Disease Consult ---
Date of Consultation January 02, 2019 Assessment & Plan (1) Fever: Agree with CT abd and pelvis. With h/o E. coli uti during she is at high risk for post pyelonephritis, she did have abnormal UA on arrival and urine culture was growing > 3 organisms. blood cultures are negative to date. will streamline abx to zosyn for now. She did have lepe sensitive E. coli in urine in September. Will repeat UA and culture but may be negative as she has had several days of abx. previous isolate was sensitive to amox (she is currently on amp which would treat). follow blood cultures. follow ct results. If she does have evidence of pyelo, she would require 14 days of abx and this will be tobin nged to po abx most likely pending repeat urine culture results. If negative, augmentin 875mg po bid would be adequate, but will follow repeat cultures. Less likely septic phelbitis but will follow ct results. Highly doubt non infectious source for fever as she has had ongoing leukocytosis as well. will follow. (2) Leukocytosis: History of Present Illness Attending Physician: Hans Gallegos MD pt admitted on 12/29 in labor, gave to boy, first child, uneventful delivery. Of note, pt had leukocytosis of 14 on admission, was afebrile. PPD#1 had tmax 38.8, PPD#2, tmax 39.3, PPD#3 tmax 39.5, current temp today 37.9. Having chills but denies rigors. wbc peaked at 20 on 12/31, tolday in smol at 7.1. Also had elevated wbc in September, was having similar shakes and feeling warm, Urine culture on 10/28 grew lepe sensitive E. coli, was treated with 2 brief courses of what she believes was amox, tolerated well. She states she did not have any gu symptoms at that time. was not on abx at the time of delivery. Was placed on amp, gent and clinda on 12/31 due to persistent fevers and shakes, and elevated wbc, remains on this and is tolerating well. She feels better today but still feels warm. She had UA on 12/30 >30 wbc, +1 bacteria, culture from 12/31 >3 organisms. Blood cultures from 12/31 negative to date. CXR done yesterday, negative. She currently denies any alfaro, visual changes, no cp, sob, cough, keller, wheeze, no abd pain, no n/v/d, eating well. States post bleeding has decreased significantly, denies any foul odor to bleeding, denies any frequency, urgency, dysuria, incontinence. spoke with ob, normal post delivery bleeding, for ct of abd/pelvis later today. Allergies Allergy/AdvReac Type Severity Reaction Status Date / Time No Known Allergies Allergy Verified 12/29/18 07:35 Home Medications Home Medications Medication Instructions Recorded Confirmed Type Vitamin 1 tab PO DAILY 11/26/18 12/29/18 History Patient History Medical History Gestational diabetes SAB (spontaneous ) [place] teeth extracted 09/2016 Surgical History H/O dilation and curettage Family History Other No pertinent family history Social History Preferred Language: Nepalese Communication Ability: Effective Beliefs That Will Affect Care: None marital status: Single Current Living Situation: Parent Current Living Situation Comment: lives with momBrea Nicholas current occupational status: employed current occupation: Cleans the kitchen at the [employer] Other Information That Helps Us Care for You: No Feels Safe at Home: Yes Safety Concerns: Feels Safe At This Time Smoking Status: Former smoker Second Hand Exposure: Yes Hx Alcohol Use: No Hx Substance Use: No Review of Systems Review of Systems: All systems reviewed & are unremarkable except as noted in HPI & below Physical Exam Constitutional: WD/WN, vitals as above Eyes: PERRL, conjunctivae normal, anicteric sclerae ENMT: external ear and nose normal, oropharynx normal Neck: normal visual inspection Respiratory: normal respiratory effort, lungs clear to auscultation Cardiovascular: RRR, no murmur, no edema Gastrointestinal (Abdomen): normal bowel sounds, soft, nontender, no hepatosplenomegaly Musculoskeletal: no cyanosis or clubbing, extremities motor strength 5/5 Skin: no rashes, warm and dry Psychiatric: A+Ox3, euthymic affect Results & Data Vital Signs (Past 12 Hours) Vital Signs Temp Pulse Resp BP 01/02/19 03:30 37.9 C H 79 18 132/81 01/02/19 00:10 36.9 C 89 18 112/72 Laboratory Results Microbiology 12/31/18 09:22 Blood Aerobic Blood Culture - Preliminary No growth in Aerobic bottle after 48 hours. 12/31/18 09:22 Blood Anaerobic Blood Culture - Final 12/31/18 08:55 Blood Aerobic Blood Culture - Preliminary No growth in Aerobic bottle after 48 hours. 12/31/18 08:55 Blood Anaerobic Blood Culture - Preliminary No growth in Anaerobic bottle after 48 hours. 12/30/18 04:00 Urine,Clean Catch Urine Culture - Final Three types or organisms present, all moderate counts probable skin ramon. No further identifications or sensitivities to follow.
[2019-01-02] MEDS ORDERED: IOVERSOL 100ml IV PRN ×2 (12:42→16:09)
--- NOTE | 2019-01-02 13:14 | CT Scan Report ---
ABDOMEN AND PELVIS CT WITH IV AND ORAL CONTRAST CT DOSE: 1235.13 mGy.cm HISTORY: Acute acute post fever fever 3 days post- on abx, r/o SPT TECHNIQUE: Multiaxial CT images of the abdomen and pelvis were performed following the use of intrave nous and oral contrast. A dose lowering technique was utilized adhering to the principles of ALARA. COMPARISON STUDY: Renal ultrasound 12/15/2018 FINDINGS: Trace pleural effusions with dependent subsegmental bibasilar opacities favoring atelectasis. No pneu matosis or pneumoperitoneum. The imaged inferior cardiac chambers are mildly enlarged. Gallbladder, spleen, pancreas and adrenal glands appear unremarkable. Mild to moderate symmetric bila teral hydroureteronephrosis. No obstructing calculus or lesion. Enlarged post gravid appearance of th e uterus. Aorta and IVC are within normal limits. No adenopathy. No bowel obstruction or bowel wall t hickening. No significant ascites or mesenteric inflammation identified. Mild colonic diverticulosis. Terminal ileum is unremarkable. The proximal and mid appendix is normal and contrast filled. The dis benito appendix is fluid-filled and measures the upper limits of normal at 6 mm. No significant periappe ndiceal inflammation. Diastases recti with small fat filled periumbilical hernia, diastases 1.7 cm. B reast parenchyma and soft tissues appear unremarkable. The bones appear to be intact. IMPRESSION: 1. Enlarged post gravid appearance of the uterus. 2. Mild to moderate symmetric bilateral hydroureteronephrosis, likely secondary to recent gravid stat us. 3. Proximal and mid appendix is normal and contrast filled, however the distal appendix is fluid-fill ed measuring in the upper limits of normal at 6 mm. Early developing acute appendicitis should be exc luded clinically. 4. Trace pleural effusions. 5. Diastases recti with small fat filled periumbilical hernia. Electronically signed by: Ryan Poe M.D. 01/02/2019 1:12 PM
[2019-01-02] MEDS: PIPERACILLIN/TAZOBACTAM 4.5 GM in DEXTROSE 5% 100 ML IV SCH ×2 (14:02→21:08)
[2019-01-02 16:01] LABS: Appearance Urine Clear (Clear); Bacteria Urine Automated Negative (Negative); Bilirubin Urine Negative (Negative); Blood Urine 1+ (Negative); Cast Urine Automated 0 /lpf (0-5); Color Urine Yellow; Epithelial Cell Urine Auto 20-30 /lpf (0-5); Glucose Urine UA Negative (Negative); Ketones Urine Negative (Negative); Leukocyte Esterase Urine Trace (Negative); Nitrite Urine Negative (Negative); Protein Urine Trace (Negative); Specific Gravity Urine 1.029 (1.000-1.030); Urobilinogen Urine Negative (Negative)
--- NOTE | 2019-01-02 16:23 | CT Scan Report ---
ABDOMEN AND PELVIS CT WITH IV CONTRAST CT DOSE: 916.51 mGy.cm HISTORY: Acute pelvic pain with concern for thrombophlebitis delayed venous phase TECHNIQUE: Multiaxial CT images of the abdomen and pelvis were performed following the use of intrave nous contrast. A dose lowering technique was utilized adhering to the principles of ALARA. COMPARISON STUDY: CT abdomen and pelvis of same day at 12:34 PM. FINDINGS: Trace pleural effusions with dependent subsegmental bibasilar opacities favoring atelectasis. No pneu matosis or pneumoperitoneum. The imaged inferior cardiac chambers are mildly enlarged. Gallbladder, spleen, pancreas and adrenal glands appear unremarkable. Decreased mild symmetric bilate ral hydroureteronephrosis. No obstructing calculus or lesion. There is patchy heterogeneous enhanceme nt about the bilateral kidneys. Enlarged post gravid appearance of the uterus. Aorta and IVC are with in normal limits. No evidence of pelvic thrombophlebitis. No adenopathy. No bowel obstruction or ashley l wall thickening. No significant ascites or mesenteric inflammation identified. Mild colonic diverti culosis. Terminal ileum is unremarkable. The proximal and mid appendix is normal and contrast filled. The distal appendix is fluid-filled and measures the upper limits of normal at 6 mm. No significant periappendiceal inflammation. Diastases recti with small fat filled periumbilical hernia, diastases 1 .7 cm. Breast parenchyma and soft tissues appear unremarkable. The bones appear to be intact. IMPRESSION: 1. No evidence of pelvic thrombophlebitis. 2. There is patchy decreased enhancement of the bilateral kidneys which may be secondary to the mild symmetric bilateral hydronephrosis versus pyelonephritis. Correlate with urinalysis. 4. Enlarged post gravid uterus. 4. Additional findings as above. Electronically signed by: Ryan Poe M.D. 01/02/2019 4:22 PM
[2019-01-03] MEDS: ACETAMINOPHEN 325 MG TAB PO PRN (00:34)
[2019-01-03] MEDS: PIPERACILLIN/TAZOBACTAM 4.5 GM in DEXTROSE 5% 100 ML IV SCH ×2 (04:51→13:18)
[2019-01-03] MEDS: FERROUS SULFATE 325 MG TAB PO SCH (08:49)
[2019-01-03] MEDS: PRENATAL VITAMIN 1 TAB PO SCH (08:49)
[2019-01-03] MEDS: DOCUSATE SODIUM 100 MG CAP PO SCH ×2 (08:49→19:42)
[2019-01-03] MEDS ORDERED: GENTAMICIN TROUGH ONE (09:30)
--- NOTE | 2019-01-03 10:37 | Obstetrical Progress Note ---
Date of Service January 03, 2019 Assessment & Plan (1) Fever: PPD #5 fever Pt is on Zoysn, ID on consult last fever was 37.6, @ 0135Hr on 01/03/19 pt is clinically doing well, no chills,SOB .malaise,or any pain Ct, XRAY and blood culx have all been negative Plan continue to watch pt on antibx ID consult Subjective Ambulation: ambulating normally Voiding: no voiding problems Passing Gas:: Yes Diet Tolerance:: regular diet Lochia:: Small Feeding Type:: breast feeding Review of Systems All systems reviewed & are unremarkable except as noted in HPI & below Physical Exam Constitutional WD/WN, vitals as above well developed and well nourished Eyes PERRL, conjunctivae normal, anicteric sclerae Neck trachea midline, no thyromegaly Respiratory normal respiratory effort, lungs clear to auscultation Auscultation: no crackles, no rales and no wheezes Cardiovascular RRR, no murmur, no edema Gastrointestinal (Abdomen) normal bowel sounds, soft, nontender, no hepatosplenomegaly Uterus is below umbilicus Musculoskeletal no cyanosis or clubbing, extremities motor strength 5/5 Skin no rashes, warm and dry Neurologic patellar DTR's 2+ bilat, sensation intact Psychiatric A+Ox3, euthymic affect Genitourinary normal external appearance Results & Data Vital Signs (Past 12 Hours) Vital Signs Temp Pulse Resp BP Pulse Ox 01/03/19 04:50 36.8 C 65 18 124/69 94 01/03/19 01:25 37.6 C H 01/03/19 00:30 38.5 C H 78 18 132/79 94
--- NOTE | 2019-01-03 13:31 | Infectious Disease Progress Nt ---
Date of Service January 03, 2019 Assessment & Plan (1) Pyelonephritis: will change abx to unasyn, repeat ua negative, blood cultures negative. suspect gu source for fever. no pad cutter source identified. If she remains afebrile, would suggest d/c on po Augmentin 875mg po bid x 14 days. Subjective pt states she is feeling better today, anxious to go home. had a fever overnight 38.5 at 12:30am, otherwise afebrile. eating well. no abd pain, no n/v/d. tolerating zosyn. blood cultures remain negative, repeat UA yesterday 5-10 wbc trace LE no bacteria. CT abd done yesterday negative for phlebitis but b/l enhancement of kidneys - hydro vs pyelonephritis noted. She is feeling much better, no flank pain, no gu symptoms. no cp, sob, cough, wheeze. min vaginal bleeding. Review of Systems Review of Systems: All systems reviewed & are unremarkable except as noted in HPI & below Physical Exam Constitutional: WD/WN, vitals as above Eyes: PERRL, conjunctivae normal, anicteric sclerae ENMT: external ear and nose normal, oropharynx normal Neck: normal visual inspection Respiratory: normal respiratory effort, lungs clear to auscultation Cardiovascular: RRR, no murmur, no edema Gastrointestinal (Abdomen): normal bowel sounds, soft, nontender, no hepatosplenomegaly Musculoskeletal: no cyanosis or clubbing, extremities motor strength 5/5 Skin: no rashes, warm and dry Psychiatric: A+Ox3, euthymic affect Results & Data Vital Signs (Past 12 Hours) Vital Signs Temp Pulse Resp BP Pulse Ox 01/03/19 08:15 37.0 C 78 18 130/87 01/03/19 04:50 36.8 C 65 18 124/69 94 Laboratory Results Microbiology 12/31/18 09:22 Blood Aerobic Blood Culture - Preliminary No growth in Aerobic bottle after 48 hours. 12/31/18 09:22 Blood Anaerobic Blood Culture - Final 12/31/18 08:55 Blood Aerobic Blood Culture - Preliminary No growth in Aerobic bottle after 48 hours. 12/31/18 08:55 Blood Anaerobic Blood Culture - Preliminary No growth in Anaerobic bottle after 48 hours. 12/30/18 04:00 Urine,Clean Catch Urine Culture - Final Three types or organisms present, all moderate counts probable skin ramon. No further identifications or sensitivities to follow.
[2019-01-03] MEDS: BENZOCAINE 20% AER SPR 82.5 GM CAN EXT PRN (15:36)
[2019-01-03] MEDS: IBUPROFEN 600 MG TAB PO PRN (15:37)
[2019-01-03] MEDS: AMPICILLIN/SULBACTAM SOD 3,000 MG in 0.9 % SODIUM CHLORIDE 100 ML IV SCH (19:42)
[2019-01-04] MEDS: AMPICILLIN/SULBACTAM SOD 3,000 MG in 0.9 % SODIUM CHLORIDE 100 ML IV SCH ×2 (00:49→06:47)
[2019-01-04] MEDS: FERROUS SULFATE 325 MG TAB PO SCH (08:30)
[2019-01-04] MEDS: PRENATAL VITAMIN 1 TAB PO SCH (08:30)
[2019-01-04] MEDS: DOCUSATE SODIUM 100 MG CAP PO SCH (08:30)
--- NOTE | 2019-01-04 09:53 | Obstetrical Progress Note ---
Date of Service January 04, 2019 Subjective feeling well out of bed tolerating diet afebrile for 48 hours Physical Exam Constitutional: WD/WN, vitals as above abdomen soft and non-tender neg Sania's passing gas BM for discharge home Results & Data Vital Signs (Past 12 Hours) Vital Signs Temp Pulse Pulse Resp BP 01/04/19 08:05 36.6 C 58 L 18 132/82 01/04/19 05:15 36.6 C 52 L 18 125/75 01/04/19 00:10 36.4 C L 46 L 56 L 18 140/85 Laboratory Results 12/29/18 12/30/18 12/30/18 10:19 04:00 06:26 WBC 14.04 H 18.49 H RBC 3.88 L 3.72 L Hgb 12.2 11.2 L Hct 34.9 L 33.6 L MCV 89.9 90.3 MCH 31.4 30.1 MCHC 35.0 33.3 RDW Std Deviation 44.7 45.6 RDW Coeff of Ren 13.6 13.8 Plt Count 330 277 MPV 9.8 9.9 Immature Gran % (Auto) Neut % (Auto) Lymph % (Auto) Simpson % (Auto) Eos % (Auto) Baso % (Auto) Immature Gran # (Auto) Neut # (Auto) Lymph # (Auto) Simpson # (Auto) Eos # (Auto) Baso # (Auto) Toxic Vacuolation Dohle Bodies Echinocytes Sodium Potassium Chloride Carbon Dioxide Anion Gap BUN Creatinine Est Cr Clr Drug Dosing Est GFR ( Amer) Est GFR (Non-Af Amer) BUN/Creatinine Ratio Glucose Calcium Total Bilirubin AST ALT Alkaline Phosphatase Total Protein Albumin Globulin Albumin/Globulin Ratio Urine Color Red Urine Appearance Cloudy A Urine pH 6.5 Ur Specific [place] 1.020 Urine Protein 2+ H Urine Glucose (UA) Negative Urine Ketones Negative Urine Blood 3+ H Urine Nitrite Negative Urine Bilirubin Negative Urine Urobilinogen Negative Ur Leukocyte Esterase 1+ H Urine WBC (Auto) Urine RBC (Auto) U Hyaline Cast (Auto) U Epithel Cells (Auto) Urine Bacteria (Auto) Urine RBC >30 H Urine WBC >30 H Ur Epithelial Cells 10-20 H Urine Bacteria 1+ H Urine Mucus Present A 12/31/18 12/31/18 01/01/19 06:22 09:22 04:34 WBC 20.17 H 12.22 H RBC 3.78 L 3.36 L Hgb 11.5 L 10.2 L Hct 34.2 L 30.7 L MCV 90.5 91.4 MCH 30.4 30.4 MCHC 33.6 33.2 RDW Std Deviation 45.7 45.9 RDW Coeff of Ren 13.9 13.8 Plt Count 281 286 MPV 10.2 9.6 Immature Gran % (Auto) 1.0 1.3 Neut % (Auto) 86.7 82.3 Lymph % (Auto) 6.1 7.6 Simpson % (Auto) 5.9 7.9 Eos % (Auto) 0.2 0.7 Baso % (Auto) 0.1 0.2 Immature Gran # (Auto) 0.20 H 0.16 H Neut # (Auto) 17.47 H 10.05 H Lymph # (Auto) 1.24 0.93 L Simpson # (Auto) 1.19 H 0.97 H Eos # (Auto) 0.05 0.09 Baso # (Auto) 0.02 0.02 Toxic Vacuolation 1+ Dohle Bodies 1+ Echinocytes 1+ Sodium 141 Potassium 4.3 Chloride 111 H Carbon Dioxide 18 L Anion Gap 12.0 H BUN 12 Creatinine 0.81 Est Cr Clr Drug Dosing 129.2 Est GFR ( Amer) 117.8 Est GFR (Non-Af Amer) 101.7 BUN/Creatinine Ratio 15.2 Glucose 125 H Calcium 9.1 Total Bilirubin 0.4 AST 19 ALT 17 Alkaline Phosphatase 104 Total Protein 6.5 Albumin 2.1 L Globulin 4.4 H Albumin/Globulin Ratio 0.5 L Urine Color Urine Appearance Urine pH Ur Specific [place] Urine Protein Urine Glucose (UA) Urine Ketones Urine Blood Urine Nitrite Urine Bilirubin Urine Urobilinogen Ur Leukocyte Esterase Urine WBC (Auto) Urine RBC (Auto) U Hyaline Cast (Auto) U Epithel Cells (Auto) Urine Bacteria (Auto) Urine RBC Urine WBC Ur Epithelial Cells Urine Bacteria Urine Mucus 01/01/19 01/02/19 01/02/19 04:34 09:20 09:20 WBC 7.18 RBC 3.51 L Hgb 10.7 L Hct 32.1 L MCV 91.5 MCH 30.5 MCHC 33.3 RDW Std Deviation 46.3 RDW Coeff of Ren 13.9 Plt Count 307 MPV 9.4 Immature Gran % (Auto) 3.8 Neut % (Auto) 75.3 Lymph % (Auto) 14.1 Simpson % (Auto) 4.7 Eos % (Auto) 1.7 Baso % (Auto) 0.4 Immature Gran # (Auto) 0.27 H Neut # (Auto) 5.41 Lymph # (Auto) 1.01 L Simpson # (Auto) 0.34 Eos # (Auto) 0.12 Baso # (Auto) 0.03 Toxic Vacuolation Dohle Bodies Echinocytes Sodium 140 142 Potassium 3.0 L D 3.2 L Chloride 110 H 110 H Carbon Dioxide 23 24 Anion Gap 8.0 8.0 BUN 14 9 D Creatinine 0.69 0.83 Est Cr Clr Drug Dosing 151.6 126.1 Est GFR ( Amer) 141.2 114.4 Est GFR (Non-Af Amer) 121.8 98.7 BUN/Creatinine Ratio 19.8 10.3 Glucose 118 H 123 H Calcium 8.5 8.5 Total Bilirubin 0.2 AST 15 ALT 16 Alkaline Phosphatase 100 Total Protein 5.8 L Albumin 1.9 L Globulin 3.9 Albumin/Globulin Ratio 0.5 L Urine Color Urine Appearance Urine pH Ur Specific [place] Urine Protein Urine Glucose (UA) Urine Ketones Urine Blood Urine Nitrite Urine Bilirubin Urine Urobilinogen Ur Leukocyte Esterase Urine WBC (Auto) Urine RBC (Auto) U Hyaline Cast (Auto) U Epithel Cells (Auto) Urine Bacteria (Auto) Urine RBC Urine WBC Ur Epithelial Cells Urine Bacteria Urine Mucus 01/02/19 15:40 WBC RBC Hgb Hct MCV MCH MCHC RDW Std Deviation RDW Coeff of Ren Plt Count MPV Immature Gran % (Auto) Neut % (Auto) Lymph % (Auto) Simpson % (Auto) Eos % (Auto) Baso % (Auto) Immature Gran # (Auto) Neut # (Auto) Lymph # (Auto) Simpson # (Auto) Eos # (Auto) Baso # (Auto) Toxic Vacuolation Dohle Bodies Echinocytes Sodium Potassium Chloride Carbon Dioxide Anion Gap BUN Creatinine Est Cr Clr Drug Dosing Est GFR ( Amer) Est GFR (Non-Af Amer) BUN/Creatinine Ratio Glucose Calcium Total Bilirubin AST ALT Alkaline Phosphatase Total Protein Albumin Globulin Albumin/Globulin Ratio Urine Color Yellow Urine Appearance Clear Urine pH 7.0 Ur Specific [place] 1.029 Urine Protein Trace H Urine Glucose (UA) Negative Urine Ketones Negative Urine Blood 1+ H Urine Nitrite Negative Urine Bilirubin Negative Urine Urobilinogen Negative Ur Leukocyte Esterase Trace H Urine WBC (Auto) 5-10 H Urine RBC (Auto) 10-30 H U Hyaline Cast (Auto) 0 U Epithel Cells (Auto) 20-30 H Urine Bacteria (Auto) Negative Urine RBC Urine WBC Ur Epithelial Cells Urine Bacteria Urine Mucus Diagnostic Findings Laboratory Results WBC 7.18 K/uL (4.8-10.8) 01/02/19 09:20 RBC 3.51 M/uL (4.2-5.4) L 01/02/19 09:20 Hgb 10.7 g/dL (12.0-16.0) L 01/02/19 09:20 Hct 32.1 % (37-47) L 01/02/19 09:20 MCV 91.5 fL (80-100) 01/02/19 09:20 MCH 30.5 pg (25-34) 01/02/19 09:20 MCHC 33.3 g/dL (32-36) 01/02/19 09:20 RDW Std Deviation 46.3 fL (36.4-46.3) 01/02/19 09:20 RDW Coeff of Ren 13.9 % (11.5-14.5) 01/02/19 09:20 Plt Count 307 K/uL (130-400) 01/02/19 09:20 MPV 9.4 fL (7.4-10.4) 01/02/19 09:20 Immature Gran % (Auto) 3.8 % 01/02/19 09:20 Neut % (Auto) 75.3 % 01/02/19 09:20 Lymph % (Auto) 14.1 % 01/02/19 09:20 Simpson % (Auto) 4.7 % 01/02/19 09:20 Eos % (Auto) 1.7 % 01/02/19 09:20 Baso % (Auto) 0.4 % 01/02/19 09:20 Immature Gran # (Auto) 0.27 K/uL (0.00-0.02) H 01/02/19 09:20 Neut # (Auto) 5.41 K/uL (1.4-6.5) 01/02/19 09:20 Lymph # (Auto) 1.01 K/uL (1.2-3.4) L 01/02/19 09:20 Simpson # (Auto) 0.34 K/uL (0.11-0.59) 01/02/19 09:20 Eos # (Auto) 0.12 K/uL (0-0.5) 01/02/19 09:20 Baso # (Auto) 0.03 K/uL (0-0.2) 01/02/19 09:20 Toxic Vacuolation 1+ 12/31/18 06:22 Dohle Bodies 1+ 12/31/18 06:22 Echinocytes 1+ 12/31/18 06:22 Sodium 142 mmol/L (136-145) 01/02/19 09:20 Potassium 3.2 mmol/L (3.5-5.1) L 01/02/19 09:20 Chloride 110 mmol/L (98-107) H 01/02/19 09:20 Carbon Dioxide 24 mmol/L (21-32) 01/02/19 09:20 Anion Gap 8.0 (3-11) 01/02/19 09:20 BUN 9 mg/dl (7-18) D 01/02/19 09:20 Creatinine 0.83 mg/dl (0.6-1.2) 01/02/19 09:20 Est Cr Clr Drug Dosing 126.1 ml/min 01/02/19 09:20 Est GFR ( Amer) 114.4 01/02/19 09:20 Est GFR (Non-Af Amer) 98.7 01/02/19 09:20 BUN/Creatinine Ratio 10.3 (10-20) 01/02/19 09:20 Glucose 123 mg/dl (70-99) H 01/02/19 09:20 Calcium 8.5 mg/dl (8.5-10.1) 01/02/19 09:20 Total Bilirubin 0.2 mg/dl (0.2-1) 01/01/19 04:34 AST 15 U/L (15-37) 01/01/19 04:34 ALT 16 U/L (12-78) 01/01/19 04:34 Alkaline Phosphatase 100 U/L (45-117) 01/01/19 04:34 Total Protein 5.8 gm/dl (6.4-8.2) L 01/01/19 04:34 Albumin 1.9 gm/dl (3.4-5.0) L 01/01/19 04:34 Globulin 3.9 gm/dl (2.5-4.0) 01/01/19 04:34 Albumin/Globulin Ratio 0.5 (0.9-2) L 01/01/19 04:34 Urine Color Yellow 01/02/19 15:40 Urine Appearance Clear (Clear) 01/02/19 15:40 Urine pH 7.0 (4.5-7.5) 01/02/19 15:40 Ur Specific [place] 1.029 (1.000-1.030) 01/02/19 15:40 Urine Protein Trace (Negative) H 01/02/19 15:40 Urine Glucose (UA) Negative (Negative) 01/02/19 15:40 Urine Ketones Negative (Negative) 01/02/19 15:40 Urine Blood 1+ (Negative) H 01/02/19 15:40 Urine Nitrite Negative (Negative) 01/02/19 15:40 Urine Bilirubin Negative (Negative) 01/02/19 15:40 Urine Urobilinogen Negative (Negative) 01/02/19 15:40 Ur Leukocyte Esterase Trace (Negative) H 01/02/19 15:40 Urine WBC (Auto) 5-10 /hpf (0-5) H 01/02/19 15:40 Urine RBC (Auto) 10-30 /hpf (0-4) H 01/02/19 15:40 U Hyaline Cast (Auto) 0 /lpf (0-5) 01/02/19 15:40 U Epithel Cells (Auto) 20-30 /lpf (0-5) H 01/02/19 15:40 Urine Bacteria (Auto) Negative (Negative) 01/02/19 15:40 Urine RBC >30 /hpf (0-4) H 12/30/18 04:00 Urine WBC >30 /hpf (0-5) H 12/30/18 04:00 Ur Epithelial Cells 10-20 /lpf (0-5) H 12/30/18 04:00 Urine Bacteria 1+ (Negative) H 12/30/18 04:00 Urine Mucus Present (None Prsent) A 12/30/18 04:00
== END 2019-01-04 10:25 | disposition home or self-care (01) | DRG 806 ==
LOC: OPB 06:56 → 4S1 07:01 → 4S2 22:57